=== PATIENT | female | born 1970 | race Native Hawaiian/Other Pacific Islander ===

== ENCOUNTER 2017-11-01 19:24 | Outpatient (CLI) | payer OTHER | END 2017-11-01 19:39 | disposition short-term general hospital (02) | LOC: AMB 19:24 | DX: M25.511 Pain in right shoulder (principal); M25.561 Pain in right knee; V49.88XA Car occupant (driver) (passenger) injured in other specified transport accidents, initial encounter; Y92.488 Other paved roadways as the place of occurrence of the external cause | CPT/HCPCS: A0425; A0427 ==

== ENCOUNTER 2017-11-01 19:44 | Emergency (ER) | payer OTHER ==
[~2017-11-01] VITALS: Ht 177.8 cm; Wt 113.4 kg
[2017-11-01 20:58] LABS: PLATELET COUNT 303 K/uL (152-353)
[2017-11-01 22:11] VITALS: BP 121/66; TEMP 98.3
== END 2017-11-01 22:15 | disposition home or self-care (01) ==
LOC: EDBD 19:44 → ED 19:44
DX: S30.0XXA Contusion of lower back and pelvis, initial encounter (principal); S40.011A Contusion of right shoulder, initial encounter; M51.37 Other intervertebral disc degeneration, lumbosacral region; M17.11 Unilateral primary osteoarthritis, right knee; M25.551 Pain in right hip; V59.50XA Passenger in pick-up truck or van injured in collision with unspecified motor vehicles in traffic accident, initial encounter
CPT/HCPCS: 85027; 96374; 96375; 99284; J1885; J2405